=== PATIENT | female | born 1980 | race Caucasian/White ===

== ENCOUNTER 2019-08-02 09:10 | Emergency (ER) | payer OTHER ==
[~2019-08-02] VITALS: Ht 165.1 cm; Wt 111.4 kg
[~2019-08-02 09:10] MED LIST: FERR325T32 PO; THYR32.510 PO; VITAMIN B IM
[2019-08-02] MEDS ORDERED: ketorolac tromethamine 15mg/ml inj. IM ONE (09:30)
[2019-08-02 11:13] VITALS: BP 120/74
== END 2019-08-02 11:10 | disposition home or self-care (01) ==
LOC: EEVIPCON 09:10 → ER 09:10
DX: R68.84 Jaw pain (principal); M54.2 Cervicalgia; R51 Headache; Z98.890 Other specified postprocedural states; Z88.5 Allergy status to narcotic agent; Z79.899 Other long term (current) drug therapy
CPT/HCPCS: 70150; 96372; 99283; J1885

== ENCOUNTER 2020-01-25 10:14 | Emergency (ER) | payer OTHER ==
[~2020-01-25] VITALS: Ht 165.1 cm; Wt 113.6 kg
[2020-01-25] MEDS ORDERED: normal saline 1000ml 1,000 ML IV ONE ×2 (10:50→12:50)
[2020-01-25 10:58] LABS: BASOPHILS # (AUTO) 0.1 X10'3 (0-0.2); BASOPHILS % (AUTO) 1.5 % (0-1); EOSINOPHILS # (AUTO) 0.2 X10'3 (0-0.9); EOSINOPHILS % (AUTO) 2.3 % (0-6); HEMATOCRIT 40.6 % (35.0-45.0); HEMOGLOBIN 14.1 g/dl (12.0-16.0); LYMPHOCYTES # (AUTO) 1.9 X10'3 (1.1-4.8); LYMPHOCYTES % (AUTO) 21.6 % (21-51); MEAN CORPUSCULAR HEMOGLOBIN 31.4 PG (27.0-31.0); MEAN CORPUSCULAR HGB CONC 34.6 g/dL (33.0-36.5); MEAN CORPUSCULAR VOLUME 90.7 FL (78-98); MEAN PLATELET VOLUME 8.5 FL (7.4-10.4); MONOCYTES # (AUTO) 0.4 X10'3 (0-0.9); MONOCYTES % (AUTO) 4.9 % (2-12); NEUTROPHILS % (AUTO) 69.7 % (42-75); PLATELET COUNT 273 X10'3 (140-440); RED BLOOD COUNT 4.48 X10'6 (4.20-5.60); RED CELL DISTRIBUTION WIDTH 12.8 % (11.5-14.5); WHITE BLOOD COUNT 8.6 X10'3 (4.5-11.0)
[2020-01-25 11:08] LABS: ALANINE AMINOTRANSFERASE 25 U/L (12-78); ALBUMIN 4.1 G/DL (3.4-5.0); ALKALINE PHOSPHATASE 62 IU/L (46-116); ANION GAP 10 (8-16); ASPARTATE AMINO TRANSFERASE 22 U/L (10-37); BILIRUBIN,TOTAL 0.5 MG/DL (0.1-1.0); BLOOD UREA NITROGEN 15 MG/DL (7-18); BUN/CREATININE RATIO 20.5 (6.6-38.0); CALCIUM 9.3 MG/DL (8.5-10.1); CHLORIDE 106 MMOL/L (99-107); CREATININE 0.73 MG/DL (0.40-0.90); GLUCOSE 98 MG/DL (70-104); POTASSIUM 3.6 MMOL/L (3.5-5.1); SODIUM 141 MMOL/L (135-145); TOTAL CARBON DIOXIDE 25.1 MMOL/L (24-32); TOTAL PROTEIN 8.3 G/DL (6.4-8.2); eGFR 89 ML/MIN
[2020-01-25] MEDS ORDERED: ondansetron/PF 4mg/2ml inj IV ONE (11:10)
[2020-01-25 11:12] LABS: HCG SERUM QL NEGATIVE
--- NOTE | 2020-01-25 11:48 | NUR ---
PT AMBULATED TO [facility] FOR UA
[2020-01-25] MEDS ORDERED: iohexol 300mg/ml 100ml inj. ONE (11:53)
[2020-01-25 11:56] LABS: CLARITY,URINE CLEAR (Clear); COLOR,URINE YELLOW (Yellow); GLUCOSE, URINE NEGATIVE (Neg); KETONES,URINE NEGATIVE (Neg); LEUKOCYTE ESTERASE ,URINE NEGATIVE (Neg); NITRITES, URINE NEGATIVE (Neg); OCCULT BLOOD,URINE LARGE (Neg); PH,URINE 7.5 (4.8-8.0); PROTEIN,URINE NEGATIVE (Neg); UROBILINOGEN,URINE 0.2 E.U/dL (0.2-1.0)
[2020-01-25 12:00] LABS: UA COLLECTION TYPE CLN CATCH MIDSTREAM
[2020-01-25 12:01] LABS: BACTERIA,URINE NONE SEEN /HPF (Neg); MUCUS STRANDS NONE SEEN /LPF (Neg); RBC,URINE 0-2 /HPF (0-2); SQUAMOUS EPITHELIAL CELL,UR NONE SEEN /LPF (FEW); WBC,URINE 0-4 /HPF (0-4)
[2020-01-25] MEDS ORDERED: ketorolac tromethamine 15mg/ml inj. IV ONE (12:45)
[2020-01-25 14:06] VITALS: BP 118/88
== END 2020-01-25 14:07 | disposition home or self-care (01) ==
LOC: EEVIPCON 10:15 → ER 10:15
DX: R10.32 Left lower quadrant pain (principal); Z88.5 Allergy status to narcotic agent; Z88.6 Allergy status to analgesic agent; Z79.899 Other long term (current) drug therapy
CPT/HCPCS: 36415; 74177; 76830; 76856; 80053; 81001; 84703; 85025; 93976; 96361; 96374; 96375; 99285; J1885; J2405; J7030; Q9967